=== PATIENT | female | born 1955 | race Caucasian/White ===

== ENCOUNTER 2020-12-29 10:43 | Inpatient (IN) ==
[2020-12-29] MEDS ORDERED: Aspirin 81 MG TAB.CHEW PO ONE (10:56)
[2020-12-29 11:51] LABS: Basophils # 0.1 K/mcL (0.0-0.2); Basophils % 0.4 %; Eosinophils # 0.1 K/mcL (0.0-0.6); Eosinophils % 0.6 %; Hemoglobin 14.4 g/dL (11.5-15.4); Immature Granulocytes % 0.4 % (0-4); Lymphocytes # 3.6 K/mcL (0.6-4.6); Lymphocytes % 32.6 %; Mean Corpuscular HGB Conc 33.5 g/dL (31.6-35.5); Mean Corpuscular Hemoglobin 32.8 pg (28.0-33.3); Mean Corpuscular Volume 97.9 fL (83.0-100.0); Mean Platelet Volume 10.2 fL (9.4-12.4); Monocytes # 0.9 K/mcL (0.0-1.3); Monocytes % 7.6 %; Neutrophils # 6.5 K/mcL (1.6-8.9); Platelet Count 239 K/mcL (140-400); Red Blood Count 4.39 M/mcL (3.82-4.97); Red Cell Distribution Width 12.9 % (11.5-14.5); Segmented Neutrophils % 58.4 %; White Blood Count 11.1 K/mcL (4.3-11.1)
[2020-12-29 12:01] LABS: Prothrombin Time 10.6 Seconds (9.4-12.1)
[2020-12-29 12:03] LABS: Activated Partial Thrombo Time 32.2 Seconds (26.0-36.0)
[2020-12-29 12:07] LABS: Calcium 9.2 mg/dL (8.6-10.3); Potassium 4.6 mEq/L (3.5-5.1)
[2020-12-29 12:13] LABS: Troponin I 0.91 ng/mL (< 0.04)
[2020-12-29] MEDS ORDERED: *HR* Heparin 5,000 UNIT/ML VIAL IVP ONE (12:42)
[2020-12-29] MEDS ORDERED: *HR* Heparin 5,000 UNIT/ML VIAL IVP PRN ×2 (12:42)
[2020-12-29] MEDS ORDERED: Melatonin 3 MG TABLET PO PRN (12:58)
[2020-12-29] MEDS ORDERED: Ondansetron ODT 4 MG TAB.RAPDIS SL PRN (12:58)
[2020-12-29] MEDS ORDERED: Naloxone 0.4 MG/ML INJ IVP PRN (12:58)
[2020-12-29] MEDS ORDERED: Mag Hydrox/Al Hydrox/Simeth 30 ML UDC PO PRN (12:58)
[2020-12-29] MEDS ORDERED: MOM Conc 10 ML UD.LIQ PO PRN (12:58)
[2020-12-29 13:06] LABS: Hemoglobin 14.2 g/dL (11.5-15.4); Mean Corpuscular Hemoglobin 32.6 pg (28.0-33.3); Mean Corpuscular Volume 98.9 fL (83.0-100.0); Mean Platelet Volume 10.2 fL (9.4-12.4); Platelet Count 242 K/mcL (140-400); Red Blood Count 4.35 M/mcL (3.82-4.97); Red Cell Distribution Width 12.8 % (11.5-14.5); White Blood Count 11.4 K/mcL (4.3-11.1)
[2020-12-29] MEDS: Heparin 25,000UNIT/250ML 1/2NS 25,000 UNIT/250 ML IV.SOLN IVC SCH (13:09)
[2020-12-29] MEDS ORDERED: Perflutren Lipid Microsphere 1.3 ML in 0.9 % Sodium Chloride 8.7 ML IVP PRN (13:11)
[2020-12-29] MEDS: 0.9 % Sodium Chloride 1,000 ML IVC SCH (13:17)
[2020-12-29 13:19] LABS: Heparin anti-factor XA UFH < 0.04 IU/mL (0.30-0.70)
[2020-12-29 13:20] LABS: INR 0.9; Prothrombin Time 10.4 Seconds (9.4-12.1)
[2020-12-29] MEDS: Nicotine 21 MG PATCH.TD24 TD SCH (16:21)
[2020-12-29] MEDS: Nitroglycerin 0.4 MG TAB.SUBL SL SCH (19:09)
[2020-12-29] MEDS: ALPRAZolam 0.5 MG TABLET PO PRN (23:39)
[2020-12-30 02:12] LABS: Hematocrit 40.8 % (35.3-44.9); Hemoglobin 13.4 g/dL (11.5-15.4); Mean Corpuscular HGB Conc 32.8 g/dL (31.6-35.5); Mean Corpuscular Hemoglobin 32.4 pg (28.0-33.3); Mean Corpuscular Volume 98.6 fL (83.0-100.0); Mean Platelet Volume 10.6 fL (9.4-12.4); Platelet Count 223 K/mcL (140-400); Red Blood Count 4.14 M/mcL (3.82-4.97); Red Cell Distribution Width 12.8 % (11.5-14.5); White Blood Count 12.3 K/mcL (4.3-11.1)
[2020-12-30 02:28] LABS: Calcium 8.9 mg/dL (8.6-10.3); Chol/HDL Ratio 3.2 (0-4.9); Potassium 4.4 mEq/L (3.5-5.1)
[2020-12-30] MEDS: 0.9 % Sodium Chloride 1,000 ML IVC SCH (03:23)
[2020-12-30] MEDS: Nicotine 21 MG PATCH.TD24 TD SCH (08:51)
[2020-12-30] MEDS: Aspirin Enteric Coated 81 MG Tablet PO SCH (08:51)
[2020-12-30] MEDS: Isosorbide MONOnitrate (24 HR) 60 MG TAB.ER.24H PO SCH (08:51)
[2020-12-30] MEDS ORDERED: Heparin 1,000 UNITS/500 mL 500 ML ONE (08:54)
[2020-12-30] MEDS ORDERED: ISOVUE-370 200 ML INFUS..BTL ONE (08:54)
[2020-12-30] MEDS ORDERED: Nitroglycerin 1,000 MCG/5 ML VIAL IV ONE (08:54)
[2020-12-30] MEDS ORDERED: *HR* Heparin 10,000 UNIT/10 ML VIAL ONE (08:54)
[2020-12-30] MEDS ORDERED: 0.9 % Sodium Chloride 1,000 ML ONE (08:54)
[2020-12-30] MEDS ORDERED: *HR* Midazolam HCl 2 MG/2 ML VIAL ONE (09:05)
[2020-12-30] MEDS ORDERED: *HR* FentaNYL (PF) 100 MCG/2 ML VIAL ONE (09:05)
[2020-12-30] MEDS ORDERED: 0.9 % Sodium Chloride 1,000 ML IVC SCH (10:15)
[2020-12-30] MEDS: Acetaminophen 325 MG TABLET PO PRN ×2 (10:28→23:39)
[2020-12-30] MEDS: Heparin 25,000UNIT/250ML 1/2NS 25,000 UNIT/250 ML IV.SOLN IVC SCH ×2 (10:36→18:32)
[2020-12-30 10:58] LABS: Estimated Average Glucose 120 mg/dl; Hemoglobin A1C 5.8 %
[2020-12-30] MEDS: ALPRAZolam 0.5 MG TABLET PO PRN (23:40)
[2020-12-31 04:14] LABS: Hematocrit 36.6 % (35.3-44.9); Hemoglobin 12.2 g/dL (11.5-15.4); Mean Corpuscular HGB Conc 33.3 g/dL (31.6-35.5); Mean Corpuscular Hemoglobin 32.4 pg (28.0-33.3); Mean Corpuscular Volume 97.3 fL (83.0-100.0); Mean Platelet Volume 10.4 fL (9.4-12.4); Platelet Count 201 K/mcL (140-400); Red Blood Count 3.76 M/mcL (3.82-4.97); Red Cell Distribution Width 12.7 % (11.5-14.5)
[2020-12-31 05:17] LABS: BUN/Creatinine Ratio 13 (6-26); Blood Urea Nitrogen 14 mg/dL (8-23); Calcium 8.3 mg/dL (8.6-10.3); Carbon Dioxide 23 mEq/L (23-29); Chloride 109 mEq/L (98-107); Glucose 96 mg/dL (70-105); Osmolality,Calculated 288 (280-300); Potassium 4.3 mEq/L (3.5-5.1); Sodium 139 mEq/L (136-145); eGFR For African Americans > 60 (> 60); eGFR For Non-African Americans 50 (> 60)
[2020-12-31] MEDS: lisinopriL 5 MG TABLET PO SCH (09:12)
[2020-12-31] MEDS: Isosorbide MONOnitrate (24 HR) 60 MG TAB.ER.24H PO SCH (09:12)
[2020-12-31] MEDS: Nicotine 21 MG PATCH.TD24 TD SCH (09:12)
[2020-12-31] MEDS: Aspirin Enteric Coated 81 MG Tablet PO SCH (09:12)
[2020-12-31] MEDS: Acetaminophen 325 MG TABLET PO PRN ×2 (15:41→21:54)
[2020-12-31 20:31] LABS: Bilirubin,Urine Negative (Negative); Blood,Urine Large (Negative); Clarity,Urine Clear (Clear); Color,Urine Yellow (Yellow); Glucose,Urine (UA) Normal (Normal); Hyaline Casts,Urine Few per lpf (None Seen); Ketones,Urine Negative (Negative); Leukocyte Esterase,Urine Trace (Negative); Mucus,Urine Few per lpf (None-Few); Nitrite,Urine Negative (Negative); Protein,Urine >=300 mg/dL (Neg-Trace); Specific Gravity,Urine 1.023 (1.010-1.025); Squamous Epithelial Cell,Urine Few per hpf (None-Few); Urobilinogen,Urine Normal (Normal)
[2020-12-31] MEDS: ALPRAZolam 0.5 MG TABLET PO PRN (21:54)
[2020-12-31] MEDS: Heparin 25,000UNIT/250ML 1/2NS 25,000 UNIT/250 ML IV.SOLN IVC SCH (23:35)
[2021-01-01] MEDS: Isosorbide MONOnitrate (24 HR) 60 MG TAB.ER.24H PO SCH (08:53)
[2021-01-01] MEDS: Nicotine 21 MG PATCH.TD24 TD SCH (08:53)
[2021-01-01] MEDS: Chlorhexidine Rinse 15 ML MOUTHWASH MM SCH ×2 (08:53→20:33)
[2021-01-01] MEDS: Aspirin Enteric Coated 81 MG Tablet PO SCH (08:53)
[2021-01-02] MEDS: Heparin 25,000UNIT/250ML 1/2NS 25,000 UNIT/250 ML IV.SOLN IVC SCH (01:56)
[2021-01-02] MEDS ORDERED: NiCARdipine 2.5 MG/10 ML Syringe IVPB ONE ×2 (06:36→06:59)
[2021-01-02] MEDS ORDERED: *HR* Midazolam HCl 5 MG/5 ML VIAL IVP ONE (06:42)
[2021-01-02] MEDS ORDERED: *HR* FentaNYL (PF) 1,000 MCG/20 ML VIAL ONE (06:42)
[2021-01-02] MEDS ORDERED: *HR* Rocuronium Bromide 50 MG/5 ML VIAL ONE (06:44)
[2021-01-02] MEDS ORDERED: *HR* Etomidate 20 MG/10 ML AMPUL IVP ONE (06:45)
[2021-01-02] MEDS ORDERED: Famotidine 20 MG/2 ML VIAL ONE (06:45)
[2021-01-02] MEDS ORDERED: Tranexamic Acid 1,000 MG/10 ML VIAL ONE ×2 (06:47→10:24)
[2021-01-02] MEDS ORDERED: Calcium Gluconate 1,000 MG/10 ML VIAL ONE (06:47)
[2021-01-02] MEDS ORDERED: Protamine Sulfate 250 MG/25 ML VIAL IVP ONE (06:47)
[2021-01-02] MEDS ORDERED: CeFAZolin Syr 2,000MG/20 ML 2,000 MG/20 ML SYRINGE IVPB ONE (07:00)
[2021-01-02] MEDS ORDERED: Dextrose 50 % in Water (Vial) 30 ML, Sodium Bicarbonate 20 MEQ, Potassium Chloride 15 M... TH ONE (07:45)
[2021-01-02] MEDS ORDERED: Dextrose 50 % in Water (Vial) 30 ML, Sodium Bicarbonate 20 MEQ, Lidocaine 1% 5 ML, Insu... TH ONE ×3 (07:45)
[2021-01-02] MEDS ORDERED: Heparin 15,000 UNIT in 0.9 % Sodium Chloride 500 ML IV ONE (07:45)
[2021-01-02] MEDS ORDERED: Norepinephrine 4 MG in 0.9 % Sodium Chloride 250 ML IVC PRN (07:45)
[2021-01-02 08:21] LABS: ABG Base Excess -4 mEq/L (-2 to 3); ABG Chloride 111 mEq/L (98-107); ABG Glucose 101 mg/dL (60-95); ABG HCO3 20 mEq/L (21-27); ABG Ionized Calcium 1.07 mmol/L (1.15-1.35); ABG Oxygen Saturation 99 % (95-98); ABG PCO2 32 mmHg (35-45); ABG PO2 149 mmHg (85-104); ABG TCO2 21 mEq/L (20-26)
[2021-01-02] MEDS ORDERED: niCARdipine 40 MG/200 ML MLS IVC ONE (08:37)
[2021-01-02] MEDS ORDERED: *HR* Metoprolol 5 MG/5 ML VIAL IVP ONE (09:02)
[2021-01-02 09:46] LABS: ABG Base Excess -4 mEq/L (-2 to 3); ABG Chloride 107 mEq/L (98-107); ABG Glucose 161 mg/dL (60-95); ABG HCO3 21 mEq/L (21-27); ABG Ionized Calcium 1.23 mmol/L (1.15-1.35); ABG Oxygen Saturation 86 % (95-98); ABG PCO2 36 mmHg (35-45); ABG PH 7.36 pH Units (7.32-7.45); ABG PO2 53 mmHg (85-104); ABG TCO2 22 mEq/L (20-26)
[2021-01-02 09:54] LABS: ABG Base Excess -4 mEq/L (-2 to 3); ABG Chloride 100 mEq/L (98-107); ABG Glucose 171 mg/dL (60-95); ABG HCO3 21 mEq/L (21-27); ABG Ionized Calcium 1.01 mmol/L (1.15-1.35); ABG Oxygen Saturation 100 % (95-98); ABG PCO2 36 mmHg (35-45); ABG PH 7.38 pH Units (7.32-7.45); ABG PO2 625 mmHg (85-104); ABG TCO2 22 mEq/L (20-26)
[2021-01-02 10:28] LABS: ABG Base Excess -1 mEq/L (-2 to 3); ABG Chloride 102 mEq/L (98-107); ABG Glucose 168 mg/dL (60-95); ABG HCO3 24 mEq/L (21-27); ABG Ionized Calcium 1.03 mmol/L (1.15-1.35); ABG Oxygen Saturation 100 % (95-98); ABG PCO2 41 mmHg (35-45); ABG PH 7.38 pH Units (7.32-7.45); ABG PO2 521 mmHg (85-104); ABG TCO2 26 mEq/L (20-26)
[2021-01-02] MEDS ORDERED: Albumin Human 5% 12.5 GM/250 ML IV.SOLN ONE (11:21)
[2021-01-02 11:29] LABS: ABG Base Excess -4 mEq/L (-2 to 3); ABG Chloride 103 mEq/L (98-107); ABG Glucose 80 mg/dL (60-95); ABG HCO3 21 mEq/L (21-27); ABG Ionized Calcium 1.29 mmol/L (1.15-1.35); ABG Oxygen Saturation 100 % (95-98); ABG PCO2 38 mmHg (35-45); ABG PH 7.35 pH Units (7.32-7.45); ABG PO2 202 mmHg (85-104); ABG TCO2 22 mEq/L (20-26)
[2021-01-02] MEDS ORDERED: Potassium Chloride 40 MEQ/200 ML BAG IVPB PRN (11:32)
[2021-01-02] MEDS ORDERED: Insulin Regular, Human 100 UNIT/ML IV PRN (11:32)
[2021-01-02] MEDS ORDERED: *HR* Dextrose 50 % in Water (Syg) 50 ML SYRINGE IVP PRN (11:32)
[2021-01-02] MEDS ORDERED: Acetaminophen 650 MG RECTAL SUPP RC PRN (11:33)
[2021-01-02] MEDS ORDERED: Albumin Human 5% 12.5 GM/250 ML IV.SOLN IVPB PRN (11:33)
[2021-01-02] MEDS ORDERED: Ondansetron 4 MG/2 ML VIAL IVP PRN (11:33)
[2021-01-02] MEDS ORDERED: Calcium Gluconate 1gm/50mL 1 GM/50 ML BAG IVPB PRN (11:33)
[2021-01-02] MEDS ORDERED: 0.9 % Sodium Chloride w KCl 20 MEQ/1,000 ML MLS IVC SCH (11:45)
[2021-01-02 12:19] LABS: ABG Base Excess -2 mEq/L (-2 to 3); ABG HCO3 23 mEq/L (21-27); ABG Oxygen Saturation 98 % (95-98); ABG PCO2 37 mmHg (35-45); ABG PH 7.39 pH Units (7.32-7.45); ABG PO2 98 mmHg (85-104); ABG TCO2 24 mEq/L (20-26); Blood Gas VT 480 cc
[2021-01-02 12:26] LABS: Basophils % 0.2 %; Eosinophils # 0.1 K/mcL (0.0-0.6); Eosinophils % 0.6 %; Hematocrit 31.4 % (35.3-44.9); Immature Granulocytes % 0.5 % (0-4); Lymphocytes # 3.5 K/mcL (0.6-4.6); Lymphocytes % 22.5 %; Mean Corpuscular HGB Conc 33.4 g/dL (31.6-35.5); Mean Corpuscular Hemoglobin 32.2 pg (28.0-33.3); Mean Corpuscular Volume 96.3 fL (83.0-100.0); Mean Platelet Volume 9.8 fL (9.4-12.4); Monocytes # 1.2 K/mcL (0.0-1.3); Monocytes % 7.9 %; Neutrophils # 10.5 K/mcL (1.6-8.9); Platelet Count 119 K/mcL (140-400); Red Blood Count 3.26 M/mcL (3.82-4.97); Red Cell Distribution Width 12.6 % (11.5-14.5); Segmented Neutrophils % 68.3 %
[2021-01-02 12:33] LABS: INR 1.2
[2021-01-02] MEDS: Pantoprazole 40 MG VIAL IVP SCH (12:33)
[2021-01-02 12:35] LABS: Activated Partial Thrombo Time 27.3 Seconds (26.0-36.0)
[2021-01-02] MEDS: Nicotine 21 MG PATCH.TD24 TD SCH (12:36)
[2021-01-02 12:38] LABS: Hemoglobin 10.5 g/dL (11.5-15.4)
[2021-01-02 12:44] LABS: Prothrombin Time 13.4 Seconds (9.4-12.1); White Blood Count 15.4 K/mcL (4.3-11.1)
[2021-01-02 12:47] LABS: Calcium 9.3 mg/dL (8.6-10.3); Magnesium 2.6 mg/dL (1.6-2.6); Potassium 4.1 mEq/L (3.5-5.1)
[2021-01-02] MEDS: niCARdipine 20 MG/200 ML MLS IVC SCH ×3 (12:50→19:43)
[2021-01-02] MEDS: *HR* OxyCODONE/APAP 5/325 TABLET PO PRN ×2 (15:34→20:18)
[2021-01-02] MEDS: *HR* FentaNYL (PF) 100 MCG/2 ML VIAL IVP PRN ×2 (15:34→22:24)
[2021-01-02] MEDS: CeFAZolin 2 GM/120 ML BAG IVPB SCH (15:35)
[2021-01-02] MEDS ORDERED: Albumin Human 25% 25 GM/100 ML IV.SOLN IVPB ONE (16:34)
[2021-01-02] MEDS ORDERED: Mannitol 20% 100 GM/500 ML IV.SOLN IVC ONE (16:34)
[2021-01-02] MEDS ORDERED: Lidocaine 2% Syringe 100 MG/5 ML IVP ONE (16:34)
[2021-01-02] MEDS ORDERED: *HR* Magnesium Sulfate 2 GM/50 ML PIGGYBACK IVPB ONE (16:34)
[2021-01-02] MEDS ORDERED: Tranexamic Acid 1,000 MG/10 ML VIAL IR ONE (16:34)
[2021-01-02] MEDS ORDERED: *HR* Phenylephrine 10 MG/ML VIAL IVC ONE (16:34)
[2021-01-02] MEDS ORDERED: *HR* Heparin 10,000 UNIT/10 ML VIAL IR ONE (16:34)
[2021-01-02 16:47] LABS: ABG Base Excess -3 mEq/L (-2 to 3); ABG HCO3 22 mEq/L (21-27); ABG Oxygen Saturation 92 % (95-98); ABG PCO2 37 mmHg (35-45); ABG PH 7.38 pH Units (7.32-7.45); ABG PO2 66 mmHg (85-104); ABG TCO2 23 mEq/L (20-26); Blood Gas VT 480 cc
[2021-01-02 17:38] LABS: ABG Base Excess -3 mEq/L (-2 to 3); ABG HCO3 22 mEq/L (21-27); ABG Oxygen Saturation 92 % (95-98); ABG PCO2 37 mmHg (35-45); ABG PH 7.38 pH Units (7.32-7.45); ABG PO2 64 mmHg (85-104); ABG TCO2 23 mEq/L (20-26); Blood Gas Modality CPAP/PS; Blood Gas Pressure Support 10 cm H2O
[2021-01-02] MEDS: Acetaminophen 325 MG TABLET PO PRN (19:12)
[2021-01-02] MEDS: Norepinephrine 4 MG/254 ML IV.SOLN IVC SCH ×2 (19:39→19:40)
[2021-01-02] MEDS: Chlorhexidine Rinse 15 ML MOUTHWASH MM SCH (20:08)
[2021-01-02 20:46] LABS: ABG Base Excess -3 mEq/L (-2 to 3); ABG HCO3 21 mEq/L (21-27); ABG Oxygen Saturation 88 % (95-98); ABG PCO2 33 mmHg (35-45); ABG PH 7.42 pH Units (7.32-7.45); ABG PO2 53 mmHg (85-104); ABG TCO2 22 mEq/L (20-26)
[2021-01-03] MEDS: *HR* OxyCODONE/APAP 5/325 TABLET PO PRN ×6 (00:14→22:52)
[2021-01-03] MEDS: CeFAZolin 2 GM/120 ML BAG IVPB SCH (00:15)
[2021-01-03] MEDS: niCARdipine 20 MG/200 ML MLS IVC SCH (03:17)
[2021-01-03] MEDS: Norepinephrine 4 MG/254 ML IV.SOLN IVC SCH (03:17)
[2021-01-03 03:30] LABS: Hemoglobin 10.4 g/dL (11.5-15.4); Mean Corpuscular HGB Conc 33.5 g/dL (31.6-35.5); Mean Corpuscular Hemoglobin 32.5 pg (28.0-33.3); Mean Corpuscular Volume 96.9 fL (83.0-100.0); Mean Platelet Volume 10.4 fL (9.4-12.4); Platelet Count 131 K/mcL (140-400); Red Cell Distribution Width 13.1 % (11.5-14.5); White Blood Count 11.7 K/mcL (4.3-11.1)
[2021-01-03 03:38] LABS: INR 1.1; Prothrombin Time 12.3 Seconds (9.4-12.1)
[2021-01-03 03:41] LABS: Activated Partial Thrombo Time 27.9 Seconds (26.0-36.0)
[2021-01-03 03:49] LABS: Albumin 3.6 g/dL (3.5-5.7); Albumin/Globulin Ratio 2.1 (1.1-2.2); Bilirubin,Total 0.5 mg/dL (0.3-1.0); Calcium 8.3 mg/dL (8.6-10.3); Globulin 1.7 g/dL (2.4-3.5); Potassium 4.1 mEq/L (3.5-5.1); Total Protein 5.3 g/dL (6.4-8.9)
[2021-01-03] MEDS: Nicotine 21 MG PATCH.TD24 TD SCH (09:00)
[2021-01-03] MEDS ORDERED: Furosemide 20 MG/2 ML VIAL IVP SCH (09:00)
[2021-01-03] MEDS ORDERED: Aspirin Enteric Coated 81 MG Tablet PO SCH (09:00)
[2021-01-03] MEDS: Chlorhexidine Rinse 15 ML MOUTHWASH MM SCH ×2 (09:00→20:14)
[2021-01-03] MEDS: lisinopriL 5 MG TABLET PO SCH (09:01)
[2021-01-03] MEDS: Pantoprazole 40 MG VIAL IVP SCH (09:02)
[2021-01-03] MEDS ORDERED: Mag Hydrox/Al Hydrox/Simeth 30 ML UDC PO PRN (12:10)
[2021-01-03] MEDS ORDERED: Naloxone 0.4 MG/ML INJ IVP PRN (12:10)
[2021-01-03] MEDS ORDERED: Melatonin 3 MG TABLET PO PRN (12:10)
[2021-01-03] MEDS ORDERED: *HR* Dextrose 50 % in Water (Syg) 50 ML SYRINGE IVP PRN (12:10)
[2021-01-03] MEDS ORDERED: D5% in Water 1,000 ML IVC PRN (12:10)
[2021-01-03] MEDS ORDERED: DOXYCYCLINE HYCLATE 50 MG PO SCH (12:10)
[2021-01-03] MEDS ORDERED: Insulin Regular, Human 100 UNIT/ML IV PRN (12:10)
[2021-01-03] MEDS ORDERED: Acetaminophen 325 MG TABLET PO PRN (12:10)
[2021-01-03] MEDS ORDERED: Ondansetron 4 MG/2 ML VIAL IVP PRN (12:10)
[2021-01-03] MEDS ORDERED: Dextrose Gel 15 GM/37.5 ML TUBE PO PRN ×2 (12:10)
[2021-01-03] MEDS ORDERED: MOM Conc 10 ML UD.LIQ PO PRN (12:10)
[2021-01-03] MEDS ORDERED: *HR* Heparin 5,000 UNIT/ML VIAL ONE (12:20)
[2021-01-03] MEDS: *HR* Heparin 5,000 UNIT/ML VIAL SQ SCH ×2 (12:46→22:51)
[2021-01-03] MEDS: Insulin LISPRO 300 UNITS/3 ML VIAL SUBQ SCH ×3 (12:47→20:15)
[2021-01-03] MEDS: PrednisoLONE Acetate 1% Opth 5 ML BOTTLE BOTH EYES SCH (13:23)
[2021-01-03] MEDS: DOXYCYCLINE ORAL SUSPENSION 100 MG/10 ML UDC PO SCH ×2 (17:07→20:15)
[2021-01-03] MEDS: ALPRAZolam 0.5 MG TABLET PO PRN ×2 (17:08→23:03)
[2021-01-03] MEDS: Furosemide 20 MG/2 ML VIAL IVP SCH (20:15)
[2021-01-04 00:44] LABS: Basophils % 0.2 %; Eosinophils % 0.1 %; Hematocrit 28.8 % (35.3-44.9); Hemoglobin 9.6 g/dL (11.5-15.4); Immature Granulocytes % 0.3 % (0-4); Lymphocytes # 2.5 K/mcL (0.6-4.6); Lymphocytes % 20.9 %; Mean Corpuscular HGB Conc 33.3 g/dL (31.6-35.5); Mean Corpuscular Hemoglobin 32.5 pg (28.0-33.3); Mean Corpuscular Volume 97.6 fL (83.0-100.0); Mean Platelet Volume 10.4 fL (9.4-12.4); Monocytes # 1.5 K/mcL (0.0-1.3); Monocytes % 12.5 %; Platelet Count 144 K/mcL (140-400); Red Blood Count 2.95 M/mcL (3.82-4.97); Red Cell Distribution Width 13.2 % (11.5-14.5); White Blood Count 12.2 K/mcL (4.3-11.1)
[2021-01-04 01:00] LABS: Potassium 4.1 mEq/L (3.5-5.1)
[2021-01-04] MEDS: *HR* OxyCODONE/APAP 5/325 TABLET PO PRN (07:30)
[2021-01-04] MEDS: Aspirin Enteric Coated 81 MG Tablet PO SCH (07:31)
[2021-01-04] MEDS: Chlorhexidine Rinse 15 ML MOUTHWASH MM SCH ×2 (07:31→20:28)
[2021-01-04] MEDS: Furosemide 20 MG/2 ML VIAL IVP SCH ×2 (07:31→20:28)
[2021-01-04] MEDS: Nicotine 21 MG PATCH.TD24 TD SCH (07:32)
[2021-01-04] MEDS: Pantoprazole 40 MG VIAL IVP SCH (07:32)
[2021-01-04] MEDS: PrednisoLONE Acetate 1% Opth 5 ML BOTTLE BOTH EYES SCH (07:32)
[2021-01-04] MEDS: DOXYCYCLINE ORAL SUSPENSION 100 MG/10 ML UDC PO SCH ×2 (07:43→20:27)
[2021-01-04] MEDS: Insulin LISPRO 300 UNITS/3 ML VIAL SUBQ SCH ×4 (08:00→20:28)
[2021-01-04] MEDS: *HR* Heparin 5,000 UNIT/ML VIAL SQ SCH (12:38)
[2021-01-04] MEDS ORDERED: DOXYCYCLINE ORAL SUSPENSION 100 MG/10 ML UDC PO SCH (21:00)
[2021-01-05] MEDS: *HR* Heparin 5,000 UNIT/ML VIAL SQ SCH ×2 (00:37→13:39)
[2021-01-05 01:47] LABS: Basophils % 0.2 %; Eosinophils # 0.1 K/mcL (0.0-0.6); Eosinophils % 0.4 %; Hematocrit 27.1 % (35.3-44.9); Hemoglobin 8.7 g/dL (11.5-15.4); Immature Granulocytes % 0.7 % (0-4); Lymphocytes # 2.3 K/mcL (0.6-4.6); Lymphocytes % 20.5 %; Mean Corpuscular HGB Conc 32.1 g/dL (31.6-35.5); Mean Corpuscular Hemoglobin 31.9 pg (28.0-33.3); Mean Corpuscular Volume 99.3 fL (83.0-100.0); Mean Platelet Volume 10.8 fL (9.4-12.4); Monocytes # 1.3 K/mcL (0.0-1.3); Monocytes % 11.3 %; Neutrophils # 7.5 K/mcL (1.6-8.9); Platelet Count 159 K/mcL (140-400); Red Blood Count 2.73 M/mcL (3.82-4.97); Red Cell Distribution Width 13.2 % (11.5-14.5); Segmented Neutrophils % 66.9 %; White Blood Count 11.2 K/mcL (4.3-11.1)
[2021-01-05] MEDS: *HR* OxyCODONE/APAP 5/325 TABLET PO PRN (07:56)
[2021-01-05] MEDS: lisinopriL 5 MG TABLET PO SCH (07:57)
[2021-01-05] MEDS: Nicotine 21 MG PATCH.TD24 TD SCH (07:57)
[2021-01-05] MEDS: Insulin LISPRO 300 UNITS/3 ML VIAL SUBQ SCH ×4 (07:57→20:30)
[2021-01-05] MEDS: Furosemide 20 MG/2 ML VIAL IVP SCH ×2 (07:58→19:30)
[2021-01-05] MEDS: Chlorhexidine Rinse 15 ML MOUTHWASH MM SCH ×2 (07:58→19:30)
[2021-01-05] MEDS: Aspirin Enteric Coated 81 MG Tablet PO SCH (07:58)
[2021-01-05] MEDS: PrednisoLONE Acetate 1% Opth 5 ML BOTTLE BOTH EYES SCH (08:00)
[2021-01-05] MEDS: Pantoprazole 40 MG VIAL IVP SCH (08:01)
[2021-01-05] MEDS: DOXYCYCLINE ORAL SUSPENSION 100 MG/10 ML UDC PO SCH ×2 (08:02→19:31)
[2021-01-05 10:28] LABS: Potassium 4.3 mEq/L (3.5-5.1)
[2021-01-06] MEDS: *HR* Heparin 5,000 UNIT/ML VIAL SQ SCH ×4 (00:43→23:33)
[2021-01-06] MEDS: *HR* OxyCODONE/APAP 5/325 TABLET PO PRN ×2 (04:29→23:33)
[2021-01-06 04:31] LABS: BUN/Creatinine Ratio 21 (6-26); Blood Urea Nitrogen 23 mg/dL (8-23); Carbon Dioxide 23 mEq/L (23-29); Chloride 101 mEq/L (98-107); Glucose 105 mg/dL (70-105); Osmolality,Calculated 284 (280-300); Sodium 135 mEq/L (136-145); eGFR For African Americans > 60 (> 60); eGFR For Non-African Americans 51 (> 60)
[2021-01-06 04:56] LABS: Basophils % 0.3 %; Eosinophils # 0.1 K/mcL (0.0-0.6); Eosinophils % 0.9 %; Hematocrit 29.5 % (35.3-44.9); Hemoglobin 9.8 g/dL (11.5-15.4); Immature Granulocytes % 1.2 % (0-4); Lymphocytes # 3.4 K/mcL (0.6-4.6); Lymphocytes % 29.5 %; Mean Corpuscular HGB Conc 33.2 g/dL (31.6-35.5); Mean Corpuscular Hemoglobin 32.1 pg (28.0-33.3); Mean Corpuscular Volume 96.7 fL (83.0-100.0); Mean Platelet Volume 10.4 fL (9.4-12.4); Monocytes # 1.3 K/mcL (0.0-1.3); Monocytes % 10.8 %; Neutrophils # 6.7 K/mcL (1.6-8.9); Platelet Count 216 K/mcL (140-400); Red Blood Count 3.05 M/mcL (3.82-4.97); Red Cell Distribution Width 13.1 % (11.5-14.5); Segmented Neutrophils % 57.3 %; White Blood Count 11.6 K/mcL (4.3-11.1)
[2021-01-06] MEDS: Nicotine 21 MG PATCH.TD24 TD SCH (07:34)
[2021-01-06] MEDS: Aspirin Enteric Coated 81 MG Tablet PO SCH (07:34)
[2021-01-06] MEDS: Furosemide 20 MG/2 ML VIAL IVP SCH ×2 (07:35→21:50)
[2021-01-06] MEDS: PrednisoLONE Acetate 1% Opth 5 ML BOTTLE BOTH EYES SCH (07:35)
[2021-01-06] MEDS: Chlorhexidine Rinse 15 ML MOUTHWASH MM SCH ×2 (07:35→21:51)
[2021-01-06] MEDS: DOXYCYCLINE ORAL SUSPENSION 100 MG/10 ML UDC PO SCH ×2 (07:35→21:52)
[2021-01-06] MEDS: Pantoprazole 40 MG VIAL IVP SCH (07:35)
[2021-01-06] MEDS: lisinopriL 5 MG TABLET PO SCH (07:37)
[2021-01-06] MEDS: Insulin LISPRO 300 UNITS/3 ML VIAL SUBQ SCH ×4 (08:06→21:51)
[2021-01-07] MEDS: lisinopriL 5 MG TABLET PO SCH (08:47)
[2021-01-07] MEDS: Aspirin Enteric Coated 81 MG Tablet PO SCH (08:47)
[2021-01-07] MEDS: Furosemide 20 MG/2 ML VIAL IVP SCH (08:48)
[2021-01-07] MEDS: Chlorhexidine Rinse 15 ML MOUTHWASH MM SCH ×2 (08:48→19:48)
[2021-01-07] MEDS: Pantoprazole 40 MG VIAL IVP SCH (08:48)
[2021-01-07] MEDS: Insulin LISPRO 300 UNITS/3 ML VIAL SUBQ SCH ×4 (08:49→19:40)
[2021-01-07] MEDS: Nicotine 21 MG PATCH.TD24 TD SCH (08:49)
[2021-01-07] MEDS: *HR* Heparin 5,000 UNIT/ML VIAL SQ SCH ×2 (12:18→23:34)
[2021-01-07] MEDS: PrednisoLONE Acetate 1% Opth 5 ML BOTTLE BOTH EYES SCH (12:18)
[2021-01-07] MEDS: DOXYCYCLINE ORAL SUSPENSION 100 MG/10 ML UDC PO SCH ×2 (12:19→19:47)
[2021-01-07] MEDS: Furosemide 40 MG/4 ML VIAL IVP SCH ×2 (16:49→18:46)
[2021-01-07] MEDS: *HR* OxyCODONE/APAP 5/325 TABLET PO PRN (23:33)
[2021-01-08 02:52] LABS: Calcium 9.3 mg/dL (8.6-10.3); Magnesium 2.4 mg/dL (1.6-2.6); Potassium 4.6 mEq/L (3.5-5.1)
[2021-01-08] MEDS: Insulin LISPRO 300 UNITS/3 ML VIAL SUBQ SCH ×2 (09:00→12:27)
[2021-01-08] MEDS: Pantoprazole 40 MG VIAL IVP SCH (09:04)
[2021-01-08] MEDS: Nicotine 21 MG PATCH.TD24 TD SCH (09:04)
[2021-01-08] MEDS: Chlorhexidine Rinse 15 ML MOUTHWASH MM SCH (09:05)
[2021-01-08] MEDS: lisinopriL 5 MG TABLET PO SCH (09:05)
[2021-01-08] MEDS: Aspirin Enteric Coated 81 MG Tablet PO SCH (09:05)
[2021-01-08] MEDS: DOXYCYCLINE ORAL SUSPENSION 100 MG/10 ML UDC PO SCH (09:05)
[2021-01-08] MEDS: Furosemide 40 MG/4 ML VIAL IVP SCH (09:05)
[2021-01-08] MEDS: PrednisoLONE Acetate 1% Opth 5 ML BOTTLE BOTH EYES SCH (09:06)
[2021-01-08 11:51] VITALS: TEMP 98.1
[2021-01-08 17:08] VITALS: BP 109/71; PULSE 106; O2SAT 96
[2021-01-09] MEDS ORDERED: Furosemide 20 MG TABLET PO SCH (09:00)
== END 2021-01-08 18:21 | disposition home or self-care (01) | DRG 234 ==
LOC: 3BNU 10:43 → EMEROOARM 10:43 → SUATTDRO 13:08 → 3BNU 13:55 → SUATTDRO 12-31 14:00 → ICNU 01-02 12:28 → 2NNU 01-03 16:56
PROVIDERS: ADMIT Family Medicine; ATTEND Student in an Organized Health Care Education/Training Program